=== PATIENT | female | born 1995 | race Caucasian/White ===

== ENCOUNTER → 2018-06-10 16:41 | Outpatient (CLI) | payer SELFPAY ==
[2018-06-13 14:12] LABS: HPV Reflexed? NOT INDICATED
== END ==
PROVIDERS: Visit Provider Obstetrics & Gynecology
DX: Z12.72 Encounter for screening for malignant neoplasm of vagina (principal)
CPT/HCPCS: 88175; G0145

== ENCOUNTER 2019-04-28 16:01 | Emergency (ER) | payer BC, SELFPAY ==
[2019-04-28 16:03] VITALS: BP 121/83; PULSE 89; RESP 16; TEMP 36.9; O2SAT 100; BMI 21.9
[2019-04-28 17:46] LABS: Mucous, Urine 0 SEEN /hpf (<or=2+); Squamous Epithelial Cells - UA 0 SEEN /hpf (5-10)
[2019-04-28 17:48] LABS: Color, Urine Amber (Yellow); Glucose, Dipstick Normal (Normal); Ketone-Dipstick Negative (Negative); Leukocyte Esterase-Dipstick 500 /ul (Negative); Nitrite-Dipstick Positive (Negative); Occult Blood-Urine 250 /ul (Negative); Protein-Dipstick 100 mg/dl (Negative); Urine Clarity Sl. Cloudy (Clear); Urine Urobilinogen 4 mg/dl (Normal); Urine pH 6.5 (5.0 - 8.0)
[2019-04-28 18:03] LABS: Urine Bilirubin Dipstick 3 mg/dL (Negative)
[2019-04-28 18:04] LABS: White Blood Cells 25-50 SEEN /hpf (0-5)
[2019-04-28 18:05] LABS: Bacteria 1+ /hpf (None Seen); Red Blood Cells-Urine 10-25 SEEN /hpf (0-5)
--- NOTE | 2019-04-28 18:22 | ED.DCSUM_ITS ---
- ER Visit Summary Date of Service: 04/28/19 Chief Complaint: [UTI symptoms] History of Present Illness: The patient is a 23 F [presents to the emergency department with 2-day history of pain and burning with urination. Patient states that she is currently on her menstrual period. She does have some pain in her back today mostly to the right side. She denies any fevers. She is had no vomiting. She complains of frequency and urgency as well as dysuria. Patient has had urinary tract infections in the past.] Physical Examination: [HEENT-PERRLA, EOMI. Cranial nerves II through XII grossly intact. TMs clear. Mucous membranes moist. No adenopathy. Cardiovascular-regular rate and rhythm without murmur or ectopy Lungs-clear to auscultation, chest wall stable without crepitus or subcu emphysema Abdomen-normoactive bowel sounds, soft, nontender, no rebound or rigidity, no peritoneal signs. Extremities-intact ?4, normal range of motion, normal pulses, atraumatic] Test Results: [Urinalysis obtained showed 500 leukocyte esterase as well as positive for nitrites and 25-50 WBCs as well as 10.5 RBCs.] Emergency Department Course and Treatment: [She was started on Bactrim and Azo.] Treatment Plan: [Be treated with Bactrim and Pyridium. 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 She is advised to return if worsening pain, fever, vomiting, or condition should worsen anyway.] Impression: [Urinary tract infection] This note was generated with [employer] dictation software. It may contain incorrect words, spelling, and punctuation that were not noted in review of the chart prior to signing ED Disposition - Plan for ED Patient: Referrals: Care Physician,No Primary [Primary Care Provider] -
--- NOTE | 2019-04-28 18:24 | ED.DEP ---
ED Disposition - Plan for ED Patient: Instructions: Bladder Infection, Female (Adult) Prescriptions: Smz/Tmp Ds [Bactrim Ds] 1 tab PO BID #10 tab Prescription Printed Phenazopyridine HCl [Pyridium] 200 mg PO BID PRN PRN #10 tab PRN Reason: Pain Prescription Printed Referrals: Care Physician,No Primary [Primary Care Provider] - Cyndee Bolanos MD [STAFF PHYSICIAN] - 3-5 Days
[2019-04-28 18:44] VITALS: BP 111/75; PULSE 87; RESP 18; O2SAT 97
[2019-04-28] MEDS: Phenazopyridine 95 MG Tablet 190 MG PO (18:44)
[2019-04-28] MEDS: Smz/Tmp Ds Tablet 1 TABLET PO (18:44)
== END 2019-04-28 18:46 | disposition home or self-care (01) ==
LOC: ED 17:48
PROVIDERS: Emergency Medicine; Emergency Provider Emergency Medicine
DX: N39.0 Urinary tract infection, site not specified (principal); Z87.440 Personal history of urinary (tract) infections
CPT/HCPCS: 81001; 87086; 87088; 87186; 99282

== ENCOUNTER → 2019-06-17 16:20 | Outpatient (CLI) | payer BC, SELFPAY ==
[2019-06-22 16:34] LABS: HPV Reflexed? NOT INDICATED
== END ==
PROVIDERS: Referring Provider Obstetrics & Gynecology; Visit Provider Obstetrics & Gynecology
DX: Z12.4 Encounter for screening for malignant neoplasm of cervix (principal)
CPT/HCPCS: 88175; G0145

== ENCOUNTER 2020-08-31 14:35 | Emergency (ER) | payer SELFPAY ==
[2020-08-31 14:37] VITALS: BP 139/90; PULSE 122; PULSE 99; RESP 16; RESP 20; TEMP 37.3; O2SAT 98; BMI 22.5
--- NOTE | 2020-08-31 14:56 | ED.VIS.GEN ---
History of Present Illness Chief Complaint: Mental Health Informant: Patient Narrative: Patient is a 25-year-old female who presents to the emergency department for suicidal ideation. She states that she has had a lot of past trauma that has been building up lately. She has tried to hurt herself before in the past with cutting her arms as well as hitting herself in the stomach. She did do this today. She was recently started on antidepressant medication last week but she is not sure which one. She states that she does drink a few times per week. Last time she drank was few days ago. She denies any drug use. She has never sought help for this before in the past. She feels like her parents do not care about her. She denies any other symptoms including any headache, vision changes. No chest pain or shortness of breath. No abdominal pain. He does have a superficial wounds to left wrist. Past Medical History - Allergies and Home Meds Allergies/Adverse Reactions: Allergies No Known Allergies Allergy (Verified 08/31/20 14:36) Primary Care Physician: Care Physician,No Primary [Primary Care Provider] - Prior records reviewed: Yes Past Medical History: - - Depression Surgical History: no surgical history Smoking Status: Never smoker Review of Systems All systems negative except as indicated General: Denies: Chills, Fever, Sweats Eyes: Denies: Visual changes - bilaterally, Diplopia ENT: Denies: Rhinorrhea, Sore throat Cardiovascular: Denies: Chest pain, Palpitations Respiratory: Denies: Dyspnea, Cough, Dyspnea on exertion Gastrointestinal: Denies: Abdominal pain, Nausea, Vomiting, Diarrhea Genitourinary: Denies: Dysuria, Hematuria, Frequency Musculoskeletal: Denies: Back pain, Extremity Pain Skin: Reports: Wounds. Denies: Rash Neurological: Denies: Headache, Weakness, Numbness Psych: Reports: Depression, Suicidal thoughts, Suicidal ideations Physical Exam Vital Signs/Narrative: Vital Signs Temp Pulse Resp BP Pulse Ox 08/31/20 14:37 99.1 F 122 H 20 H 139/90 H 98 Inital Vital Signs reviewed: Yes General: Well nourished, Well developed, No Acute Distress Head: Normocephalic, Atraumatic Eyes: Perrl, EOMI ENT: Moist mucous membranes, No rhinorrhea Neck: Supple, Nontender Cardiovascular: Regular rate, Regular rhythm, No murmurs Respiratory: No distress, CTA bilaterally, Chest nontender Abdomen: Soft, Nontender, Nondistended, Normal bowel sounds Back: Nontender, Normal Inspection Extremities: Nontender, No edema Skin: Normal color, No rash, - - 7 horizontally oriented linear superficial lacerations extending 3 to 4 mm each over left wrist Neurological: Alert, Oriented x3, Cranial nerves II-XII grossly intact, Normal Strength, Normal Sensation Psychological: Tearful, - - Patient calm and cooperative. Diagnostic/Tx/Re-eval - Medical Decision Making Patient presents to the ED for suicidal thoughts. She did cut her wrist today. She is never required acute psychiatric hospital visit before in the past for this. Denies any other symptoms at this time. Upon arrival to the emergency department she is in no acute distress. Will check basic lab work for medical clearance and will have social work evaluate. Patient's lab work did not reveal a significant acute abnormality. Her potassium was mildly low so this was replaced orally. Patient medically clear for psychiatric evaluation. Currently awaiting an available bed. Patient signed out due to end of shift. She otherwise has been stable throughout ED stay. ED Disposition - Plan for ED Patient: Disposition: Psychiatric Hospital or Unit Diagnosis: Suicidal ideation, Self-harming behavior Referrals: Care Physician,No Primary [Primary Care Provider] -
[2020-08-31 15:08] LABS: Absolute Lymphocyte Count 0.89 X10^3/uL (0.83-4.51); Absolute Neutrophil Count 2.9 X10^3/uL (2.0-7.7); Basophil# 0.02 X10^3/uL; Basophil% 0.5 % (0-1); Eosinophil# 0.04 X10^3/uL; Hematocrit 42.1 % (37-47); Hemoglobin 14.2 g/dL (12.0-15.0); Lymphocyte # 0.89 X10^3/ul (4.0); Lymphocyte % 21.5 % (19-41); Mean Corp Hgb Conc 33.7 g/dL (32-36); Mean Corpuscular Hgb 30.9 pg (27.0-32.0); Mean Corpuscular Volume 91.7 fL (81-99); Mean Platelet Vol. 10.2 fl (6.2-12.0); Monocyte# 0.25 X10^3/uL; NRBC Flagged by Analyzer 0 % (0-5); Neutrophil # 2.93 X10^3/uL (2.7-7.7); Neutrophil % 70.8 % (47-70); Platelet Count 312 K/mm3 (150-450); RBC Distribution Width CV 12.2 % (11.6-14.6); RBC Distribution Width SD 40.7 fl (35.1-43.9); Red Blood Count 4.59 M/mm3 (4.2-5.4); White Blood Count 4.1 K/mm3 (4.4-11.0)
[2020-08-31 15:22] LABS: Anion Gap 5 (5-15); BUN 12 mg/dL (7-18); BUN/Creat Ratio 13.5 RATIO (10-20); Chloride 106 mmol/L (98-107); Creatinine, Serum 0.89 mg/dL (0.55-1.02); EST Glomerular Filtration Rate 83 mL/min (>60); Est Glom Filt Rate - Afr Amer 100 mL/min (>60); Estimated Creatinine Clearance 91.25 ml/min; Glucose 99 mg/dL (74-106); Potassium 3.2 mmol/L (3.5-5.1); Sodium Level 139 mmol/L (136-145)
[2020-08-31 15:37] LABS: Amphetamine Urine VISTA NEGATIVE (<1000 ng/mL); Barbiturate Urine VISTA NEGATIVE (< 200 ng/mL); Benzodiazepine Urine VISTA NEGATIVE (< 200 ng/mL); Cocaine Urine VISTA NEGATIVE (< 300 ng/mL); Ecstacy Urine VISTA NEGATIVE (< 500 ng/mL); Methadone Urine VISTA NEGATIVE (< 300 ng/mL); PCP Urine VISTA NEGATIVE (< 25 ng/mL); THC Urine VISTA NEGATIVE (< 50 ng/mL); Vista UDS pH Range 6
[2020-08-31 16:09] LABS: Alcohol, Blood (Medical)-Serum < 3.0 mg/dL
[2020-08-31 16:20] LABS: Internal QC Validated? YES +Cl - CLEAR BKGD; Pregnancy, Serum, hCG Quali. NEGATIVE Negative
--- NOTE | 2020-08-31 16:31 | ED.RN ---
CHART FAXED TO [facility]
--- NOTE | 2020-08-31 18:22 | ED.RN ---
pt medicated with her home control and fluoxetine per verbal order from dr castro
--- NOTE | 2020-08-31 18:57 | NURSING ---
FRANCISCO FROM [facility] CALLED SAYING [facility] NEEDED US TO TREAT THE LOW POTASSIUM AND GET BETTER VITALS. I WILL INFORM THE NURSE
[2020-08-31 19:33] VITALS: BP 117/87; PULSE 78; RESP 14; O2SAT 98
[2020-08-31 20:21] VITALS: RESP 16
[2020-08-31 21:20] VITALS: RESP 16
[2020-08-31 22:21] VITALS: RESP 14
[2020-08-31 23:09] VITALS: RESP 14
--- NOTE | 2020-08-31 23:50 | NURSING ---
ACCEPTED TO [facility] BY [facility]ALINO [facility] [phone] REPORT
[2020-09-01 00:06] VITALS: BP 116/89; PULSE 68; RESP 14; TEMP 36.6; O2SAT 98
== END 2020-09-01 00:55 ==
PROVIDERS: Emergency Provider Emergency Medicine
DX: F32.9 Major depressive disorder, single episode, unspecified (principal); R45.851 Suicidal ideations; E87.6 Hypokalemia; S61.512A Laceration without foreign body of left wrist, initial encounter; X78.9XXA Intentional self-harm by unspecified sharp object, initial encounter; Y93.9 Activity, unspecified; Y92.9 Unspecified place or not applicable; Y99.9 Unspecified external cause status; Z79.899 Other long term (current) drug therapy
CPT/HCPCS: 80048; 80307; 82077; 84703; 85025; 99285

== ENCOUNTER → 2021-07-12 16:22 | Outpatient (CLI) | payer OTHER, SELFPAY ==
[2021-07-12 17:13] LABS: Absolute Lymphocyte Count 1.16 X10^3/uL (0.83-4.51); Absolute Neutrophil Count 1.9 X10^3/uL (2.0-7.7); Basophil# 0.03 X10^3/uL; Basophil% 0.8 % (0-1); Eosinophil# 0.27 X10^3/uL; Eosinophils% 7.4 % (0-5); Hematocrit 38.7 % (37-47); Hemoglobin 13.2 g/dL (12.0-15.0); Lymphocyte # 1.16 X10^3/ul (0.83-4.51); Lymphocyte % 31.8 % (19-41); Mean Corp Hgb Conc 34.1 g/dL (32-36); Mean Corpuscular Hgb 30.3 pg (27.0-32.0); Mean Corpuscular Volume 88.8 fL (81-99); Mean Platelet Vol. 10.5 fl (6.2-12.0); Monocyte% 8.2 % (0-10); NRBC Flagged by Analyzer 0 % (0-5); Neutrophil # 1.88 X10^3/uL (2.7-7.7); Neutrophil % 51.5 % (47-70); Platelet Count 310 K/mm3 (150-450); RBC Distribution Width CV 12.7 % (11.6-14.6); RBC Distribution Width SD 41.2 fl (35.1-43.9); Red Blood Count 4.36 M/mm3 (4.2-5.4); White Blood Count 3.7 K/mm3 (4.4-11.0)
[2021-07-12 17:44] LABS: ALB/GLOB Ratio 0.9 RATIO (0.9-2.4); AST(SGOT) 20 U/L (15-37); Alanine Aminotransfer ALT/SGPT 25 U/L (13-56); Albumin, Serum 3.2 g/dL (3.2-5.0); Alkaline Phosphatase 61 U/L (45-117); Anion Gap 8 (5-15); BUN 11 mg/dL (7-18); BUN/Creat Ratio 14.2 RATIO (10-20); Calcium,Total 8.3 mg/dL (8.5-10.1); Chloride 108 mmol/L (98-107); Creatinine, Serum 0.77 mg/dL (0.55-1.02); EST Glomerular Filtration Rate 96 mL/min (>60); Est Glom Filt Rate - Afr Amer 117 mL/min (>60); Globulin 3.7 g/dL (2.2-4.2); Glucose 91 mg/dL (74-106); Potassium 4.1 mmol/L (3.5-5.1); Protein, Total 6.9 g/dL (6.4-8.2); Sodium Level 142 mmol/L (136-145); T4 Free Direct 1.23 ng/dL (0.76-1.46); Thyroid Stim Hormone (TSH) 2.97 uIU/mL (0.358-3.74)
== END ==
LOC: BIMLAB 16:23
PROVIDERS: PCP Internal Medicine; Visit Provider Internal Medicine
DX: K92.1 Melena (principal); R10.9 Unspecified abdominal pain; R19.7 Diarrhea, unspecified
CPT/HCPCS: 36415; 80053; 84439; 84443; 85025

== ENCOUNTER → 2021-07-27 09:22 | Outpatient (CLI) | payer OTHER, SELFPAY ==
[2021-07-27 11:33] LABS: Erythrocyte Sedimentation Rate 12 mm/hr (0-30)
[2021-07-27 11:38] LABS: CRP 7.74 mg/L (0.0-3.0)
[2021-07-28 13:07] LABS: Anti-Centromere B Ab <0.2 AI (0.0-0.9); Anti-Chromatin <0.2 AI (0.0-0.9); Anti-Jo <0.2 AI (0.0-0.9); Anti-Scleroderma-70 AB <0.2 AI (0.0-0.9); RNP Ab <0.2 AI (0.0-0.9); SJOGREN'S Anti-SS-A test < 0.2 AI (0.0-0.9); SJOGREN'S Anti-SS-B test < 0.2 AI (0.0-0.9); Smith Ab <0.2 AI (0.0-0.9)
[2021-07-28 16:08] LABS: Cytoplasmic Ab (C-ANCA) <1:20 titer (Neg:<1:20); Endomysial Antibody IgA Positive (Negative); Immunoglobulin A 141 mg/dL (87-352)
[2021-07-28 20:40] LABS: Anti-dsDNA Ab <1 IU/mL (0-9)
[2021-07-28 20:41] LABS: Perinuclear Ab (P-ANCA) <1:20 titer (Neg:<1:20); t-Transglutaminase IgA >100 U/mL (0-3)
== END ==
LOC: LAB 09:23
PROVIDERS: PCP Internal Medicine; Referring Provider Nurse Practitioner Adult Health; Visit Provider Nurse Practitioner Adult Health
DX: R19.7 Diarrhea, unspecified (principal); K92.1 Melena; R10.9 Unspecified abdominal pain
CPT/HCPCS: 36415; 82784; 83516; 85652; 86140; 86225; 86235; 86255; 86256

== ENCOUNTER 2021-08-29 13:43 | Day surgery (SDC) | payer OTHER, SELFPAY ==
[2021-08-03 11:43] LABS: Calprotectin, Stool 234 ug/g (0-120)
[2021-08-29] VITALS (7 sets, daily range): BP systolic 95–116; BP diastolic 37–84; PULSE 62–80; RESP 16; TEMP 36.4–36.7; O2SAT 100; BMI 19.2
--- NOTE | 2021-08-29 | COLBX_PTH ---
PATIENT: LUPE AGUIRRE LOC: EN U#:[id number] AGE/SX: 26/F ROOM: RE08/29/[address]: Dr. Jatinder Richards DO : 1995 BED: DIS: 08/29/2021 SPEC #: [id number] RECD: 08/29/21 15:55 STATUS: ANGELIQUE ESPINOZA #: [id number] ORACIO: 08/29/21 00:[address]: Jatinder Richards DEPT: SURGICAL PATHOLOGY RECD BY: Malcolm Weiss ENTERED: 08/30/21 09:35 SP TYPE: COLON BX OTHR DR: Dr. Werner Rivera MD Tissues: A - Duodenum, NOS B - Small intestine biopsy C - COLON BIOPSY Procedures: Surgery Specimen Level IV HEADER OPERATION: Colonoscopy, EGD ([facility]) PRE-OP DIAGNOSIS: Iron deficiency anemia, GI bleed, GI hemorrhage, splenomegaly TISSUE SUBMITTED: A ? Duodenum biopsy, B ? Small bowel aphthous ulcer biopsy, C ? Random colon biopsy MICROSCOPIC DIAGNOSIS A. Duodenum, biopsy: Consistent with celiac disease. See microscopic description and comment. B. Small bowel aphthous ulcer, biopsy: Fragments of small intestinal mucosa with prominent lymphoid aggregates and granuloma formation. See comment. C. Colon, random biopsy: Focal mild chronic active colitis. See microscopic description and comment. COMMENT A. The findings are consistent with celiac disease. B. Significant active inflammation is not seen. C. The findings are suggestive of inflammatory bowel disease (Crohn?s disease). Correlation with clinical, endoscopic findings and appropriate follow up are necessary. Case has been reviewed in consultation with Dr. Pratt who concurs with the above diagnosis. IDC:AM MICROSCOPIC DESCRIPTION Slides are reviewed. A. The specimen shows fragments of duodenal mucosa with flattening of villi, increased number of intraepithelial lymphocytes and moderate chronic inflammatory cells, infiltrates in the lamina propria consisting of lymphocytes and plasma cells. C. The specimen shows fragments of colonic mucosa with focal mild cryptitis and numerous granuloma formation and lymphoid aggregates. Significant glandular distortion and crypt abscesses are not seen. GROSS DESCRIPTION A - Received in fixative is one container labeled with the patient's name and designated duodenum biopsy. The specimen consists of multiple irregular fragments of light ihcks soft tissue that in aggregate measure 1.5 x 0.4 x 0.1 cm. The specimen is totally submitted in one cassette. B - Received in fixative is one container labeled with the patient's name and designated Small bowel aphthous ulcer. The specimen consists of two irregular fragments of light hicks soft tissue that in aggregate measure 0.5 x 0.4 x 0.1 cm. The specimen is totally submitted in one cassette. C - Received in fixative is one container labeled with the patient's name and designated random colon biopsy. The specimen consists of multiple irregular fragments of light hicks soft tissue that in aggregate measure 1.8 x 0.5 x 0.1 cm. The specimen is totally submitted in one cassette. / SJ:rg 08/30/2021 TC:2 CPT: 60618 x3
[2021-08-29 14:10] LABS: Internal QC Validated? YES +Cl - CLEAR BKGD; Pregnancy, Urine Negative Negative
[2021-08-29] MEDS: Lactated Ringers 1,000 ML 15 ML IV (14:18)
--- NOTE | 2021-08-29 14:53 | PCM.HP.BLA ---
History and Physical Date of Admission: 08/29/21 26 F who presents to the office today for Referred for evaluation of abdominal discomfort, liquid stool with occasional blood. No predictors or triggers noted. Onset age 20. Family history of Crohn?s Disease. Additional history of anxiety and depression. Bloodwork from 07/12/21 noted WBC (L3.7), EOS (H 7.4), Absolute neutrophils (L1.9), Chloride (H108), Calcium (L8.3). Reports a lot of diarrhea, some days she will have a normal BM in the morning with liquid stool later up to five times a day a majority of the week. Reports occasional blood in her stool. One episode several years ago in which stools were majority of blood and resolved spontaneously. At times diarrhea is urgent, abdominal pain/cramping, decreased appetite with 20lb weight loss in the last 2 months. Has attempted pepto-bismol which changed stool to black but did not change stool. Has reduced the amount of sugar in her diet. ROS Const Constitutional: No anorexia, fatigue, fever(s), weight change or sleep problems Eyes Eyes: No change in vision ENT ENT: No abnormal hearing, difficulty swallowing, mouth lesions, tongue swelling or throat swelling Resp Respiratory: No cough or shortness of breath Cardio Cardiology: No chest pain at rest, chest pain with exertion, shortness of breath or dyspnea on exertion Gastro GI: No difficulty swallowing Genitourinary-Female: No difficulty urinating or burning urination Musc Musculoskeletal: No joint pain, joint swelling, muscle weakness or decreased muscle mass Skin Skin: No hair loss in leg, yellowing of the eye, itchy eyes, rash, skin ulcer or skin swelling Neuro Neurology: No abnormal hearing, abnormal movements, confusion, unsteady gait/balance or memory loss Psych Psychiatric: No anxiety, No confusion and No memory loss Endo Endocrine: No fatigue or weight change Aller/Imm Allergy/Immunologic: No itchy eyes, throat swelling or tongue swelling Guillermo/Lymp Hematologic/Lymphatic: No easy bleeding, easy bruising or enlarged lymph nodes Exam Const General: cooperative and comfortable Nutritional Appearance: average body habitus and well nourished HENMT Head: normal to inspection Ears: hearing grossly normal bilaterally Nose: external nose normal Face and sinus: normal facial exam Mouth: oral mucosae normal Throat: posterior oropharynx normal Eyes General: appearance normal, both eyes and all related structures Neck Neck: normal visual inspection Chest Chest palpation & inspection: normal inspection of the chest and normal palpation of entire chest wall Resp Effort & Inspection: normal respiratory effort Auscultation: Bilateral: Clear to Auscultation Cardio Palpation: normal PMI Rate: regular rate Rhythm: regular rhythm GI Inspection: normal to inspection Auscultation: normal bowel sounds Percussion: normal to percussion Palpation: no hepatosplenomegaly Skin General: no rashes or lesions noted Neuro General: patient alert Extrem General: normal to inspection Psych Affect: normal affect Quality Reporting Tobacco Screening ([facility]) Smoking Status: Never smoker Assessment and Plan Assessment and Plan (1) Diarrhea: Status: Acute Orders: Orders: CRP Today Erythrocyte Sed Rate Today Miscellaneous Lab Procedure Today Plan - Dr. Tobias Friend, DO: Differential diagnosis for her diarrhea does include Crohn's disease graded ulcerative colitis. Also different diagnosis could be celiac disease, IBS with diarrhea and less likely infectious. We will get stool studies along with biochemical work-up including ESR, CRP, VERONICA, ANCA, LDH. (2) Blood in stool: Status: Acute Orders: Orders: CRP Today Erythrocyte Sed Rate Today Miscellaneous Lab Procedure Today Plan - Dr. Tobias Friend, DO: Your diagnosis for blood in stool does include proctitis, ulcerative colitis, hemorrhoidal disease. She will get a colonoscopy lower GI tract with biopsies. She was explained alternatives, risk, benefits including outstanding bleeding, infection, sepsis, perforation, need for emergent surgery . She will have an ASA 1. I have re-examined the patient. There are no clinical changes since date of exam.
--- NOTE | 2021-08-29 15:13 | OP.EGD_ITS ---
Patient Name: Wendy Tran Procedure Date: 08/29/2021 2:55 PM Date of : 1995 Age: 26 Procedure: Upper GI endoscopy Indications: Epigastric abdominal pain, Failure to respond to medical treatment Providers: Jatinder Richards DO Referring MD: Werner Rivera MD Medicines: See the Anesthesia note for documentation of the administered medications Patient Profile: This is a 26 year old female. Refer to note in patient chart for documentation of history and physical. Patient has symptoms. Complications: No immediate complications. Procedure: Pre-Anesthesia Assessment: - Prior to the procedure, a History and Physical was performed, and patient medications and allergies were reviewed. The risks and benefits of the procedure and the sedation options and risks were discussed with the patient. All questions were answered and informed consent was obtained. Patient identification and proposed procedure were verified by the physician in the pre-procedure area. Mental Status Examination: alert and oriented. Airway Examination: normal oropharyngeal airway and neck mobility. Respiratory Examination: clear to auscultation. CV Examination: normal. Prophylactic Antibiotics: The patient does not require prophylactic antibiotics. Prior Anticoagulants: The patient has taken no previous anticoagulant or antiplatelet agents. After reviewing the risks and benefits, the patient was deemed in satisfactory condition to undergo the procedure. The anesthesia plan was to use moderate sedation / analgesia (conscious sedation). Immediately prior to administration of medications, the patient was re-assessed for adequacy to receive sedatives. The heart rate, respiratory rate, oxygen saturations, blood pressure, adequacy of pulmonary ventilation, and response to care were monitored throughout the procedure. The physical status of the patient was re-assessed after the procedure. After obtaining informed consent, the endoscope was passed under direct vision. Throughout the procedure, the patient's blood pressure, pulse, and oxygen saturations were monitored continuously. The Endoscope was introduced through the mouth, and advanced to the second part of duodenum. The upper GI endoscopy was accomplished without difficulty. The patient tolerated the procedure well. Moderate Sedation: Moderate (conscious) sedation was administered by the endoscopy nurse and supervised by the endoscopist. The following parameters were monitored: oxygen saturation, heart rate, blood pressure, and response to care. Total physician intraservice time was 15 minutes. Scope In: Scope Out: Findings: The examined esophagus was normal. The entire examined stomach was normal. Diffuse moderate inflammation characterized by congestion (edema), erythema and friability was found in the duodenal bulb, in the first portion of the duodenum, in the second portion of the duodenum and in the third portion of the duodenum. Biopsies for histology were taken with a cold forceps for evaluation of celiac disease. Verification of patient identification for the specimen was done. Estimated blood loss was minimal. Impression: - Normal esophagus. - Normal stomach. - Duodenitis. Biopsied. Recommendation: - Discharge patient to home. - Resume previous diet. - Continue present medications. - Await pathology results. - Return to my office. Procedure Code(s): --- Professional --- 70346, Esophagogastroduodenoscopy, flexible, transoral; with biopsy, single or multiple 08995, 59, Moderate sedation services provided by the same physician or other qualified health foster care therapist performing the diagnostic or therapeutic service that the sedation supports, requiring the presence of an independent trained observer to assist in the monitoring of the patient's level of consciousness and physiological status; initial 15 minutes of intraservice time, patient age 5 years or older CPT copyright 2017 [employer]. All rights reserved. The codes documented in this report are preliminary and upon information coder review may be revised to meet current compliance requirements. Jatinder Richards DO 08/29/2021 3:13:07 PM This report has been signed electronically. Number of Addenda: 1 Note Initiated On: 08/29/2021 2:55 PM Addendum Number: 1 Addendum Date: 04/12/2022 6:24:59 AM MAC was used instead of moderate sedation for the patient. Jatinder Richards DO 04/12/2022 6:25:03 AM This report has been signed electronically.
--- NOTE | 2021-08-29 15:14 | OP.CCLET_ITS ---
04/12/2022 Werner Rivera MD [address] [place] [address] [place] [address] Re : Upper GI endoscopy procedure for Wendy Tran Dear Dr. Rivera This procedure was performed on Sunday, August 29, 2021. My impressions and recommendations are as follows: Impressions : - Normal esophagus. - Normal stomach. - Duodenitis. Biopsied. Recommendations : - Discharge patient to home. - Resume previous diet. - Continue present medications. - Await pathology results. - Return to my office. My findings are described in the full procedure note, which is enclosed. If I can be of further assistance, please feel free to contact me at . Sincerely, Jatinder Richards, 08/29/2021 3:13:07 PM This report has been signed electronically.
--- NOTE | 2021-08-29 15:50 | OP.CCLET_ITS ---
04/12/2022 Werner Rivera MD [address] [place] [address] [place] [address] Re : Colonoscopy procedure for Wendy Tran Dear Dr. Rivera This procedure was performed on Sunday, August 29, 2021. My impressions and recommendations are as follows: Impressions : - Congested mucosa in the recto-sigmoid colon, in the sigmoid colon and in the descending colon. Biopsied. - Congested mucosa in the distal ileum. Biopsied. Recommendations : - Discharge patient to home. - Resume previous diet. - Continue present medications. - Await pathology results. - Return to GI clinic. - Repeat colonoscopy at appointment to be scheduled for surveillance based on pathology results. My findings are described in the full procedure note, which is enclosed. If I can be of further assistance, please feel free to contact me at . Sincerely, Jatinder Friend, 08/29/2021 3:49:34 PM This report has been signed electronically.
--- NOTE | 2021-08-29 15:50 | OP.COLON_ITS ---
Patient Name: Wendy Tran Procedure Date: 08/29/2021 3:14 PM Date of : 1995 Age: 26 Procedure: Colonoscopy Indications: Clinically significant diarrhea of unexplained origin Providers: Jatinder Richards DO Referring MD: Werner Rivera MD Medicines: See the Anesthesia note for documentation of the administered medications Patient Profile: This is a 26 year old female. Refer to note in patient chart for documentation of history and physical. Patient has symptoms. Last Colonoscopy: none. The patient's first colonoscopy is today. Complications: No immediate complications. Procedure: Pre-Anesthesia Assessment: - Prior to the procedure, a History and Physical was performed, and patient medications and allergies were reviewed. The risks and benefits of the procedure and the sedation options and risks were discussed with the patient. All questions were answered and informed consent was obtained. Patient identification and proposed procedure were verified by the physician in the pre-procedure area. Mental Status Examination: alert and oriented. Airway Examination: normal oropharyngeal airway and neck mobility. Respiratory Examination: clear to auscultation. CV Examination: normal. Prophylactic Antibiotics: The patient does not require prophylactic antibiotics. Prior Anticoagulants: The patient has taken no previous anticoagulant or antiplatelet agents. After reviewing the risks and benefits, the patient was deemed in satisfactory condition to undergo the procedure. The anesthesia plan was to use moderate sedation / analgesia (conscious sedation). Immediately prior to administration of medications, the patient was re-assessed for adequacy to receive sedatives. The heart rate, respiratory rate, oxygen saturations, blood pressure, adequacy of pulmonary ventilation, and response to care were monitored throughout the procedure. The physical status of the patient was re-assessed after the procedure. After I obtained informed consent, the scope was passed under direct vision. Throughout the procedure, the patient's blood pressure, pulse, and oxygen saturations were monitored continuously. The pediatric colonoscope was introduced through the anus and advanced to the terminal ileum. The colonoscopy was performed without difficulty. The patient tolerated the procedure well. The quality of the bowel preparation was good. Moderate Sedation: Moderate (conscious) sedation was administered by the endoscopy nurse and supervised by the endoscopist. The following parameters were monitored: oxygen saturation, heart rate, blood pressure, and response to care. Total physician intraservice time was 15 minutes. Scope In: 3:18:31 PM Scope Withdrawal Time 0 hours 9 minutes 10 seconds Scope Out: 3:34:42 PM Total Procedure Duration Time 0 hours 16 minutes 11 seconds Findings: The perianal and digital rectal examinations were normal. An area of moderately congested mucosa was found in the recto-sigmoid colon, in the sigmoid colon and in the descending colon. Biopsies for histology were taken with a cold forceps from the ascending colon, right colon, left colon, transverse colon, right transverse colon, left transverse colon, descending colon, sigmoid colon, rectum and rectosigmoid colon for evaluation of microscopic colitis. Estimated blood loss was minimal. A patchy area of the distal ileum was congested. Biopsies were taken with a cold forceps for histology. Verification of patient identification for the specimen was done. Estimated blood loss was minimal. Impression: - Congested mucosa in the recto-sigmoid colon, in the sigmoid colon and in the descending colon. Biopsied. - Congested mucosa in the distal ileum. Biopsied. Recommendation: - Discharge patient to home. - Resume previous diet. - Continue present medications. - Await pathology results. - Return to GI clinic. - Repeat colonoscopy at appointment to be scheduled for surveillance based on pathology results. Procedure Code(s): --- Professional --- 67605, Colonoscopy, flexible; with biopsy, single or multiple 28440, 59, Moderate sedation services provided by the same physician or other qualified health home child care provider performing the diagnostic or therapeutic service that the sedation supports, requiring the presence of an independent trained observer to assist in the monitoring of the patient's level of consciousness and physiological status; initial 15 minutes of intraservice time, patient age 5 years or older CPT copyright 2017 [employer]. All rights reserved. The codes documented in this report are preliminary and upon ultrasonic welding machine operator review may be revised to meet current compliance requirements. Jatinder Richards DO 08/29/2021 3:49:34 PM This report has been signed electronically. Number of Addenda: 1 Note Initiated On: 08/29/2021 3:14 PM Addendum Number: 1 Addendum Date: 04/12/2022 6:25:11 AM MAC was used instead of moderate sedation for the patient. Jatinder Richards DO 04/12/2022 6:25:16 AM This report has been signed electronically.
== END 2021-08-29 23:59 | disposition home or self-care (01) ==
LOC: EN 13:45 → AC 13:46
PROVIDERS: Anesthesiology; Nurse Practitioner Adult Health; PCP Internal Medicine; Referring Provider Internal Medicine; Visit Provider Internal Medicine Gastroenterology
PROC: 0DJD8ZZ Inspection of Lower Intestinal Tract, Via Natural or Artificial Opening Endoscopic (ICD-10-PCS; CPT 45378; principal; 2021-08-29 14:40)
DX: K52.9 Noninfective gastroenteritis and colitis, unspecified (principal); K29.80 Duodenitis without bleeding; F32.A Depression, unspecified; F41.9 Anxiety disorder, unspecified; G25.81 Restless legs syndrome; Z79.899 Other long term (current) drug therapy
CPT/HCPCS: 45380; 43239; 81025; 83630; 83993; 87426; 87493; 87506; 88305; C9803; J7120

== ENCOUNTER 2021-09-20 16:28 | Outpatient (CLI) | payer OTHER, SELFPAY ==
[2021-09-21 08:30] LABS: Hepatitis B Surface Antigen Non-Reactive (Nonreactive); Rubella IgG Reactive (Nonreactive)
[2021-09-22 22:07] LABS: Hepatitis B Core Ab Total Negative (Negative); QNTFERON TB Mitogen Value > 10.00 IU/mL (.); QNTFERON TB Nil Value 0.06 IU/mL (.); QNTFERON TB1+ Ag Value 0.26 IU/mL (.); QNTFERON TB2+ Ag Value 0.22 IU/mL (.)
[2021-09-23 10:16] LABS: Hepatitis A AB, Total Negative (Negative); Mumps Antibody,IgG < 9.0 AU/mL (Immune >10.9); QNTIFERON TB Positive Criteria Negative (Negative); Rubeola IgG Ab 72.8 AU/mL (Immune >16.4); V-Zoster IgG (Immunity) 603 index (Immune >165)
== END 2021-09-20 23:59 | disposition home or self-care (01) ==
LOC: LAB 16:31
PROVIDERS: PCP Internal Medicine; Visit Provider Nurse Practitioner Adult Health
DX: K50.90 Crohn's disease, unspecified, without complications (principal)
CPT/HCPCS: 36415; 86480; 86704; 86708; 86735; 86762; 86765; 86787; 87340

== ENCOUNTER 2021-11-23 10:24 | Outpatient (CLI) | payer OTHER, SELFPAY ==
[2021-11-23 10:46] LABS: Absolute Lymphocyte Count 0.64 X10^3/uL (0.83-4.51); Absolute Neutrophil Count 2.5 X10^3/uL (2.0-7.7); Basophil# 0.03 X10^3/uL; Basophil% 0.8 % (0-1); Eosinophils% 2.7 % (0-5); Hematocrit 37.9 % (37-47); Hemoglobin 12.5 g/dL (12.0-15.0); Lymphocyte # 0.64 X10^3/ul (0.83-4.51); Lymphocyte % 17.5 % (19-41); Mean Corpuscular Hgb 30.3 pg (27.0-32.0); Mean Corpuscular Volume 91.8 fL (81-99); Mean Platelet Vol. 10.6 fl (6.2-12.0); Monocyte# 0.34 X10^3/uL; Monocyte% 9.3 % (0-10); NRBC Flagged by Analyzer 0 % (0-5); Neutrophil # 2.53 X10^3/uL (2.7-7.7); Neutrophil % 69.4 % (47-70); Platelet Count 206 K/mm3 (150-450); RBC Distribution Width CV 12.8 % (11.6-14.6); RBC Distribution Width SD 42.8 fl (35.1-43.9); Red Blood Count 4.13 M/mm3 (4.2-5.4); White Blood Count 3.7 K/mm3 (4.4-11.0)
[2021-11-23 10:51] LABS: Erythrocyte Sedimentation Rate 3 mm/hr (0-30)
[2021-11-23 11:16] LABS: ALB/GLOB Ratio 1.1 RATIO (0.9-2.4); AST(SGOT) 14 U/L (15-37); Alanine Aminotransfer ALT/SGPT 18 U/L (13-56); Albumin, Serum 3.7 g/dL (3.2-5.0); Alkaline Phosphatase 53 U/L (45-117); Anion Gap 2 (5-15); BUN 13 mg/dL (7-18); BUN/Creat Ratio 15.4 RATIO (10-20); CRP 4.63 mg/L (0.0-3.0); Calcium,Total 8.6 mg/dL (8.5-10.1); Chloride 108 mmol/L (98-107); Creatinine, Serum 0.84 mg/dL (0.55-1.02); EST Glomerular Filtration Rate 87 mL/min (>60); Est Glom Filt Rate - Afr Amer 106 mL/min (>60); Globulin 3.3 g/dL (2.2-4.2); Glucose 75 mg/dL (74-106); Potassium 3.8 mmol/L (3.5-5.1); Sodium Level 141 mmol/L (136-145)
[2021-11-23 11:17] LABS: Hepatitis B Surface Antibody Non-Reactive
== END 2021-11-23 23:59 | disposition home or self-care (01) ==
PROVIDERS: PCP Internal Medicine; Referring Provider Nurse Practitioner Adult Health; Visit Provider Nurse Practitioner Adult Health
DX: K50.90 Crohn's disease, unspecified, without complications (principal)
CPT/HCPCS: 36415; 80053; 85025; 85652; 86140; 86706

== ENCOUNTER → 2021-11-28 | Outpatient (CLI) | payer OTHER, SELFPAY ==
--- NOTE | 2021-11-28 08:10 | CT_ITS ---
STUDY: CT ABDOMEN AND PELVIS WITH CONTRAST REASON FOR EXAM: Female, 26 years old. Diffuse abdominal pain, history of Crohn''s RADIATION DOSAGE (If Supplied By Facility): CTDIvol = ( 10.83 ) mGy, DLP = ( 801.52 ) mGycm TECHNIQUE: Transaxial images were obtained from the dome of the diaphragm to the symphysis pubis without oral contrast. Oral and amp; IV BREEZA NEUTRAL and amp; 100mL Isovue-300 was administered. Sagittal and coronal images were reconstructed. Individualized dose optimization techniques were used for this CT. COMPARISON: None. FINDINGS: The visualized lung bases are unremarkable. The visualized portions of the heart are within normal limits. Normal liver. Normal gallbladder and extrahepatic biliary system. Normal spleen. Normal pancreas. Normal bilateral adrenal glands. Normal right kidney. Normal left kidney. Stomach is distended and fluid-filled. However, there is no suspicious submucosal thickening or perigastric inflammation to suspect gastritis. There is also no suspicious submucosal thickening in small or large bowel loops. There are nondistended fluid-filled small bowel loops throughout the lower half of the abdomen along with fluid-filled ascending colon suggesting diffuse enteritis. There is retained stool in the distal transverse and descending colon. Appendix seen on coronal recon images 38 through 48 Normal abdominal aorta. Normal inferior vena cava. Normal retroperitoneum. Normal urinary bladder. Normal visualized uterus. No suspicious adnexal mass, there is a small amount of free fluid in the dependent pelvis which is likely physiologic. Normal abdominal wall. Normal osseous structures. CT/Abdomen/Pelvis WITH Contrast IMPRESSION: Multiple nondistended fluid-filled small bowel loops in the lower half of the abdomen consistent with ileus. There is no suspicious submucosal thickening or pericolonic inflammatory stranding. No demonstrated fistula. There is also fluid filled ascending colon without submucosal thickening. Findings are consistent with diffuse enteritis. Stomach is distended and fluid-filled but there is no suspicious submucosal thickening in the body of the stomach or gastric antrum. No gastric inflammation to suspect gastritis. Small amount of free fluid in the dependent pelvis is likely physiologic No suspicious solid organ abnormality Normal appendix visualized Electronically Signed: Romie Umanzor MD at 10:57 EDT ,
== END | disposition home or self-care (01) ==
LOC: CT 07:47
PROVIDERS: PCP Internal Medicine; Referring Provider Nurse Practitioner Adult Health; Visit Provider Nurse Practitioner Adult Health
DX: K50.90 Crohn's disease, unspecified, without complications (principal); R10.9 Unspecified abdominal pain
CPT/HCPCS: 74177; Q9967

== ENCOUNTER → 2021-12-14 | Outpatient (CLI) | payer OTHER, SELFPAY ==
--- NOTE | 2021-12-14 10:41 | NM_ITS ---
INDICATION: distended stomach on CT EXAMINATION: NUCLEAR MEDICINE GASTRIC EMPTYING - NM Gastric Emptying Study (solid, liquid or both) TECHNIQUE: Radiopharmaceutical (solid portion of the exam Tc99m Sulfur Colloid mixed with oat meal. Oral administration. Imaging: Radiopharmaceutical (liquid portion of the exam Tc99m Sulfur Colloid mixed with orange juice. Oral administration. Imaging: COMPARISON: None. FINDINGS: Gastric emptying time with solids: 20 minutes, within normal limits. Gastric emptying time with liquids: 20 minutes, within normal limits. NM/Gastric Emptying Study IMPRESSION: Normal gastric emptying time with liquids and solids. Electronically Signed: Alfredo Ford MD at 23:45 EDT ,
== END | disposition home or self-care (01) ==
PROVIDERS: PCP Internal Medicine; Referring Provider Nurse Practitioner Adult Health; Visit Provider Nurse Practitioner Adult Health
DX: K31.89 Other diseases of stomach and duodenum (principal); R93.5 Abnormal findings on diagnostic imaging of other abdominal regions, including retroperitoneum
CPT/HCPCS: 78264; A9541

== ENCOUNTER → 2022-03-19 | Outpatient (CLI) | payer OTHER, SELFPAY ==
[2022-03-19 10:21] LABS: Erythrocyte Sedimentation Rate 6 mm/hr (0-30)
[2022-03-19 10:22] LABS: Absolute Lymphocyte Count 0.87 X10^3/uL (0.83-4.51); Absolute Neutrophil Count 1.6 X10^3/uL (2.0-7.7); Basophil# 0.03 X10^3/uL; Eosinophil# 0.16 X10^3/uL; Eosinophils% 5.5 % (0-5); Hematocrit 42.1 % (37-47); Hemoglobin 13.8 g/dL (12.0-15.0); Lymphocyte # 0.87 X10^3/ul (0.83-4.51); Lymphocyte % 29.7 % (19-41); Mean Corp Hgb Conc 32.8 g/dL (32-36); Mean Corpuscular Hgb 30.7 pg (27.0-32.0); Mean Corpuscular Volume 93.8 fL (81-99); Monocyte# 0.23 X10^3/uL; Monocyte% 7.8 % (0-10); NRBC Flagged by Analyzer 0 % (0-5); Neutrophil # 1.64 X10^3/uL (2.7-7.7); Platelet Count 248 K/mm3 (150-450); RBC Distribution Width CV 12.6 % (11.6-14.6); RBC Distribution Width SD 43.3 fl (35.1-43.9); Red Blood Count 4.49 M/mm3 (4.2-5.4); White Blood Count 2.9 K/mm3 (4.4-11.0)
[2022-03-19 10:57] LABS: ALB/GLOB Ratio 1.1 RATIO (0.9-2.4); AST(SGOT) 13 U/L (15-37); Alanine Aminotransfer ALT/SGPT 18 U/L (13-56); Albumin, Serum 3.8 g/dL (3.2-5.0); Alkaline Phosphatase 42 U/L (45-117); Anion Gap 3 (5-15); BUN 9 mg/dL (7-18); BUN/Creat Ratio 10.4 RATIO (10-20); CRP < 2.90 mg/L (0.0-3.0); Calcium,Total 8.9 mg/dL (8.5-10.1); Chloride 107 mmol/L (98-107); Creatinine, Serum 0.87 mg/dL (0.55-1.02); EST Glomerular Filtration Rate 84 mL/min (>60); Est Glom Filt Rate - Afr Amer 102 mL/min (>60); Globulin 3.5 g/dL (2.2-4.2); Glucose 99 mg/dL (74-106); Potassium 3.6 mmol/L (3.5-5.1); Protein, Total 7.3 g/dL (6.4-8.2); Sodium Level 140 mmol/L (136-145)
[2022-03-20 13:08] LABS: Endomysial Antibody IgA Positive (Negative)
[2022-03-21 13:48] LABS: Immunoglobulin A 143 mg/dL (87-352); t-Transglutaminase IgA 6 U/mL (0-3)
== END | disposition home or self-care (01) ==
PROVIDERS: PCP Internal Medicine; Referring Provider Nurse Practitioner Adult Health; Visit Provider Nurse Practitioner Adult Health
DX: K90.0 Celiac disease (principal); K50.90 Crohn's disease, unspecified, without complications
CPT/HCPCS: 80053; 82784; 83516; 85025; 85652; 86140; 86255

== ENCOUNTER → 2022-03-23 | Outpatient (CLI) | payer OTHER, SELFPAY ==
[2022-03-27 07:54] LABS: Calprotectin, Stool 139 ug/g (0-120)
== END | disposition home or self-care (01) ==
LOC: LABSPEC 10:27
PROVIDERS: PCP Internal Medicine; Referring Provider Nurse Practitioner Adult Health; Visit Provider Nurse Practitioner Adult Health
DX: K90.0 Celiac disease (principal); K50.90 Crohn's disease, unspecified, without complications
CPT/HCPCS: 83630; 83993

== ENCOUNTER → 2022-04-27 | Outpatient (CLI) | payer OTHER, SELFPAY ==
[2022-04-27 11:48] LABS: Mucous, Urine 0 SEEN /hpf (<or=2+); Red Blood Cells-Urine 0 SEEN /hpf (0-5); White Blood Cells 0 SEEN /hpf (0-5)
[2022-04-27 12:23] LABS: Absolute Lymphocyte Count 0.89 X10^3/uL (0.83-4.51); Absolute Neutrophil Count 1.6 X10^3/uL (2.0-7.7); Basophil# 0.02 X10^3/uL; Basophil% 0.7 % (0-1); Eosinophils% 3.5 % (0-5); Hematocrit 39.6 % (37-47); Hemoglobin 12.9 g/dL (12.0-15.0); Lymphocyte # 0.89 X10^3/ul (0.83-4.51); Lymphocyte % 31.2 % (19-41); Mean Corp Hgb Conc 32.6 g/dL (32-36); Mean Corpuscular Hgb 31.6 pg (27.0-32.0); Mean Corpuscular Volume 97.1 fL (81-99); Mean Platelet Vol. 10.9 fl (6.2-12.0); Monocyte# 0.28 X10^3/uL; Monocyte% 9.8 % (0-10); NRBC Flagged by Analyzer 0 % (0-5); Neutrophil # 1.55 X10^3/uL (2.7-7.7); Neutrophil % 54.4 % (47-70); Platelet Count 192 K/mm3 (150-450); RBC Distribution Width CV 12.8 % (11.6-14.6); RBC Distribution Width SD 45.8 fl (35.1-43.9); Red Blood Count 4.08 M/mm3 (4.2-5.4); White Blood Count 2.9 K/mm3 (4.4-11.0)
[2022-04-27 15:01] LABS: Color, Urine Straw (Yellow); Glucose, Dipstick Normal (Normal); Ketone-Dipstick Negative (Negative); Leukocyte Esterase-Dipstick Negative /ul (Negative); Nitrite-Dipstick Negative (Negative); Occult Blood-Urine Negative /ul (Negative); Protein-Dipstick Negative (Negative); Specific Gravity, Urine 1.015 (1.002-1.030); Urine Bilirubin Dipstick Negative (Negative); Urine Clarity Clear (Clear); Urine Urobilinogen Normal (Normal)
[2022-04-27 15:16] LABS: Bacteria 1+ /hpf (None Seen); Squamous Epithelial Cells - UA 0-5 SEEN /hpf (5-10)
[2022-04-27 15:19] LABS: Internal QC Validated? YES +Cl - CLEAR BKGD; Pregnancy, Urine Negative Negative
== END | disposition home or self-care (01) ==
LOC: BIMLAB 11:22
PROVIDERS: PCP Internal Medicine; Referring Provider Internal Medicine; Visit Provider Internal Medicine
DX: D72.819 Decreased white blood cell count, unspecified (principal); R10.2 Pelvic and perineal pain; R82.90 Unspecified abnormal findings in urine
CPT/HCPCS: 36415; 81001; 81025; 85025; 87086; 87088

== ENCOUNTER → 2022-09-27 | Outpatient (CLI) | payer BC, SELFPAY ==
[2022-09-27 10:28] LABS: Erythrocyte Sedimentation Rate 5 mm/hr (0-30)
[2022-09-27 10:30] LABS: Absolute Neutrophil Count 4.3 X10^3/uL (2.0-7.7); Basophil# 0.02 X10^3/uL; Basophil% 0.4 % (0-1); Eosinophil# 0.09 X10^3/uL; Eosinophils% 1.7 % (0-5); Hematocrit 36.3 % (37-47); Hemoglobin 11.9 g/dL (12.0-15.0); Lymphocyte % 11.3 % (19-41); Mean Corp Hgb Conc 32.8 g/dL (32-36); Mean Corpuscular Hgb 31.8 pg (27.0-32.0); Mean Corpuscular Volume 97.1 fL (81-99); Mean Platelet Vol. 10.8 fl (6.2-12.0); Monocyte# 0.28 X10^3/uL; Monocyte% 5.3 % (0-10); NRBC Flagged by Analyzer 0 % (0-5); Neutrophil # 4.25 X10^3/uL (2.7-7.7); Neutrophil % 80.4 % (47-70); POSITIVE DIFFERENTIAL YES; Platelet Count 210 K/mm3 (150-450); RBC Distribution Width CV 13.2 % (11.6-14.6); RBC Distribution Width SD 46.8 fl (35.1-43.9); Red Blood Count 3.74 M/mm3 (4.2-5.4); White Blood Count 5.3 K/mm3 (4.4-11.0)
[2022-09-27 10:37] LABS: Differential Indicated SCAN CRITERIA MET
[2022-09-27 10:53] LABS: Vitamin B12 415 pg/mL (211-911)
[2022-09-27 11:25] LABS: ALB/GLOB Ratio 0.8 RATIO (0.9-2.4); AST(SGOT) 17 U/L (15-37); Alanine Aminotransfer ALT/SGPT 17 U/L (13-56); Albumin, Serum 3.1 g/dL (3.2-5.0); Alkaline Phosphatase 41 U/L (45-117); Anion Gap 7 (5-15); BUN 15 mg/dL (7-18); BUN/Creat Ratio 25.1 RATIO (10-20); CRP < 2.90 mg/L (0.0-3.0); Chloride 106 mmol/L (98-107); EST Glomerular Filtration Rate 129 mL/min (>60); Est Glom Filt Rate - Afr Amer 156 mL/min (>60); Globulin 3.7 g/dL (2.2-4.2); Glucose 78 mg/dL (74-106); Potassium 3.7 mmol/L (3.5-5.1); Protein, Total 6.8 g/dL (6.4-8.2); Sodium Level 138 mmol/L (136-145)
[2022-09-30 08:08] LABS: Endomysial Antibody IgA Positive (Negative); HEPATITIS B SURFACE AG Negative (Negative); Hep C Antibodies Non Reactive (Non Reactive); Hepatitis A IgM Antibody Negative (Negative); Hepatitis B Core AB IgM Negative (Negative); Immunoglobulin A 101 mg/dL (87-352); QNTFERON TB Mitogen Value > 10.00 IU/mL (.); QNTFERON TB Nil Value 0.02 IU/mL (.); QNTFERON TB1+ Ag Value 0.07 IU/mL (.); QNTFERON TB2+ Ag Value 0.05 IU/mL (.)
[2022-09-30 09:12] LABS: QNTIFERON TB Positive Criteria Negative (Negative); t-Transglutaminase IgA 5 U/mL (0-3)
== END | disposition home or self-care (01) ==
LOC: LAB 09:19
PROVIDERS: PCP Internal Medicine; Referring Provider Nurse Practitioner Adult Health; Visit Provider Nurse Practitioner Adult Health
DX: K50.90 Crohn's disease, unspecified, without complications (principal); K90.0 Celiac disease
CPT/HCPCS: 36415; 80053; 80074; 82607; 82746; 82784; 83516; 85025; 85652; 86140; 86255; 86480

== ENCOUNTER → 2022-10-01 | Outpatient (CLI) | payer BC, SELFPAY ==
[2022-10-06 10:59] LABS: Calprotectin, Stool 18 ug/g (0-120)
== END | disposition home or self-care (01) ==
LOC: LAB 08:26
PROVIDERS: PCP Internal Medicine; Referring Provider Nurse Practitioner Adult Health; Visit Provider Nurse Practitioner Adult Health
DX: K50.90 Crohn's disease, unspecified, without complications (principal); K90.0 Celiac disease; K58.9 Irritable bowel syndrome, unspecified
CPT/HCPCS: 83630; 83993

== ENCOUNTER → 2023-08-29 | Outpatient (CLI) | payer BC, SELFPAY ==
--- OUTSIDE RECORDS SUMMARY | 2023-08-29 09:21 | XMS RPT_ITS | CCD ---
Author Name Unknown Address [id number] [place] [id number] Organization [facility] Care Team Providers Care Nurseryman Assistant Name Role Phone JADEN SANTO MD Primary Care Physician SHANNON PUGA DO Attending JADEN Crabtree MD Primary Care Unavailab SHANNON Green DO Admitting BAYRON Ling Attending JADEN Reese MD Primary Care Unavailab le PROVIDER, UNKNOWN Attending JADEN Dewitt MD Primary Care Unavailab le PROVIDER, UNKNOWN Attending JADEN Dewitt MD Primary Care Unavailab BAYRON Rocha Attending JADEN Reese MD Primary Care Unavailab le Results Test Name Value Interpretation Reference Range Facil ity Encounters Encounter Date Encounter Type Care Provider Facility Start: 02-19-2023 End: 02-22-2023 Evaluation and management of inpatient SHANNON PUGA DO Facility:[facility] Start: 10-08-2022 End: 10-09-2022 ambulatory UNKNOWN PROVIDER Facility:[facility] Start: 10-08-2022 End: 10-08-2022 Patient encounter procedure MINESH GARAY APRN-IRENE [facility] Start: 08-15-2022 End: 08-16-2022 ambulatory UNKNOWN PROVIDER Facility:[facility] Start: 08-15-2022 End: 08-15-2022 Patient encounter procedure MINESH GARAY APRN-IRENE [facility] Start: 07-09-2022 End: 07-10-2022 ambulatory BAYRON PLUNKETT [employer] TEACHER-DIRECTOR PRESALES Facility:[facility] Start: 07-09-2022 End: 07-09-2022 Patient encounter procedure BAYRON PLUKNETT PUBLIC HEALTH TEACHER-DIRECTOR PRESALES [facility] Start: 07-07-2022 End: 07-08-2022 ambulatory BAYRON PLUNKETT [employer] HE[employer] TEACHER-DIRECTOR PRESALES Facility:[facility] Start: 07-07-2022 End: 07-07-2022 Patient encounter procedure BAYRON PLUNKETT [employer] HE[employer] TEACHER-DIRECTOR PRESALES [facility] Payers Date Payer Category Payer Unknown [id number] 2022 Unknown [id number] 1995 Unknown [id number] 1995 Unknown [id number] 1995 Unknown [id number] [id number] [id number] 1995 Unknown [id number] 2.16.8 [id number] 1995 Unknown [id number] 2.16.8 [id number] Social History Date Type Detail Facility Tobacco smoking status No Smoking Status Entered [facility] Sex Assigned At Female [facility] Evaluation + Plan note Radiology Note Date & Type Note Facility Evaluation + Plan note Future Appointments Appointment Date:07/09/2022 10:30:00 AM Scheduled Provider: Location:[facility] Appointment Type:US OB W/Transvaginal Future Scheduled TestsUS OB W/Transvaginal 07/09/22 [facility] Hospital course Narrative Note Date & Type Note Facility Hospital course Narrative No data available for this section [facility] Hospital Discharge instructions Note Date & Type Note Facility Hospital Discharge instructions No data available for this section [facility] Progress note Note Date & Type Note Facility Progress note No data available for this section [facility] Summary Purpose Family History No Family History Records Found Advance Directives No Advanced Directives Records Found Additional Source Comments Care Team (unrecognized sect ion and content) Care Team Personnel Name: JADEN SANTO MD Member Role: Primary Care Physician Address: Address: [address] [place] [address] Care Team Personnel Name: JADEN SANTO MD Member Role: Primary Care Physician Address: Address: [address] [place] [address] Care Team Personnel Name: JADEN SANTO MD Member Role: Primary Care Physician Address: Address: [address] [place] [address] Care Team Related Persons Name: MARY IBRAHIM Care Team Personnel Name: JADEN SANTO MD Member Role: Primary Care Physician Address: Address: [address] [place] [address] Care Team Related Persons Name: MARY IBRAHIM INFORMATION SOURCE (unrecogn ized section and content) FOR RECORDS PERTAINING TO PATIENTS WHO ARE OR HAVE BEEN ENROLLED IN A CHEMICAL DEPENDENCY/SUBSTANCEABUSE PROGRAM, SOME INFORMATION MAY BE OMITTED. This clinical summary was aggregated from multiple sources. Caution should be exercised in using it in the provision of clinical care. This summary normalizes information from multiple sources, and as a consequence, information in this document may materially change the coding, format and clinical context of patient data. In addition, data may be omitted in some cases. CLINICAL DECISIONS SHOULD BE BASED ON THE PRIMARY CLINICAL RECORDS. [facility]. provides no warranty or guarantee of the accuracy or completeness of information in this document.
[2023-08-29 09:39] LABS: Erythrocyte Sedimentation Rate < 1 mm/hr (0-30)
[2023-08-29 09:41] LABS: Absolute Lymphocyte Count 1.25 X10^3/uL (0.83-4.51); Absolute Neutrophil Count 3.2 X10^3/uL (2.0-7.7); Basophil# 0.03 X10^3/uL; Basophil% 0.6 % (0-1); Eosinophil# 0.16 X10^3/uL; Eosinophils% 3.2 % (0-5); Hematocrit 40.4 % (37-47); Hemoglobin 13.1 g/dL (12.0-15.0); Lymphocyte # 1.25 X10^3/ul (0.83-4.51); Lymphocyte % 25.3 % (19-41); Mean Corp Hgb Conc 32.4 g/dL (32-36); Mean Corpuscular Hgb 30.3 pg (27.0-32.0); Mean Corpuscular Volume 93.5 fL (81-99); Mean Platelet Vol. 10.9 fl (6.2-12.0); Monocyte% 6.1 % (0-10); NRBC Flagged by Analyzer 0 % (0-5); Neutrophil # 3.19 X10^3/uL (2.7-7.7); Neutrophil % 64.4 % (47-70); Platelet Count 255 K/mm3 (150-450); RBC Distribution Width CV 12.8 % (11.6-14.6); RBC Distribution Width SD 43.8 fl (35.1-43.9); Red Blood Count 4.32 M/mm3 (4.2-5.4)
[2023-08-29 09:53] LABS: ALB/GLOB Ratio 1.1 RATIO (0.9-2.4); AST(SGOT) 10 U/L (15-37); Alanine Aminotransfer ALT/SGPT 16 U/L (13-56); Albumin, Serum 3.7 g/dL (3.2-5.0); Alkaline Phosphatase 68 U/L (45-117); Anion Gap 0 (5-15); BUN 16 mg/dL (7-18); BUN/Creat Ratio 20.6 RATIO (10-20); CRP < 2.90 mg/L (0.0-3.0); Calcium,Total 8.7 mg/dL (8.5-10.1); Chloride 110 mmol/L (98-107); Creatinine, Serum 0.78 mg/dL (0.55-1.02); EST Glomerular Filtration Rate 95 mL/min (>60); Est Glom Filt Rate - Afr Amer 115 mL/min (>60); Globulin 3.3 g/dL (2.2-4.2); Glucose 110 mg/dL (74-106); LDH 133 U/L (84-246); Potassium 3.6 mmol/L (3.5-5.1); Sodium Level 139 mmol/L (136-145)
[2023-09-02 15:07] LABS: Endomysial Antibody IgA Positive (Negative); Immunoglobulin A 120 mg/dL (87-352); QNTFERON TB Mitogen Value > 10.00 IU/mL (.); QNTFERON TB Nil Value 0 IU/mL (.); QNTFERON TB1+ Ag Value 0.13 IU/mL (.); QNTFERON TB2+ Ag Value 0.04 IU/mL (.); QNTIFERON TB Positive Criteria Negative (Negative); t-Transglutaminase IgA 2 U/mL (0-3)
== END | disposition home or self-care (01) ==
PROVIDERS: PCP Internal Medicine; Referring Provider Internal Medicine Gastroenterology; Visit Provider Internal Medicine Gastroenterology
DX: K50.90 Crohn's disease, unspecified, without complications (principal); K90.0 Celiac disease
CPT/HCPCS: 36415; 80053; 82784; 83516; 83615; 85025; 85652; 86140; 86255; 86480

== ENCOUNTER → 2023-09-06 | Outpatient (CLI) | payer BC, SELFPAY ==
[2023-09-11 00:07] LABS: Calprotectin, Stool 103 ug/g (0-120)
== END | disposition home or self-care (01) ==
LOC: LABSPEC 12:17
PROVIDERS: PCP Internal Medicine; Referring Provider Internal Medicine Gastroenterology; Visit Provider Internal Medicine Gastroenterology
DX: K90.0 Celiac disease (principal); K50.90 Crohn's disease, unspecified, without complications
CPT/HCPCS: 83630; 83993

== ENCOUNTER → 2024-01-17 | Outpatient (CLI) | payer BC, SELFPAY ==
[2024-01-17 10:37] LABS: Absolute Lymphocyte Count 1.15 X10^3/uL (0.83-4.51); Absolute Neutrophil Count 2.2 X10^3/uL (2.0-7.7); Basophil# 0.04 X10^3/uL; Eosinophil# 0.13 X10^3/uL; Eosinophils% 3.4 % (0-5); Hematocrit 39.5 % (37-47); Hemoglobin 13.1 g/dL (12.0-15.0); Lymphocyte # 1.15 X10^3/ul (0.83-4.51); Lymphocyte % 29.8 % (19-41); Mean Corp Hgb Conc 33.2 g/dL (32-36); Mean Corpuscular Hgb 30.3 pg (27.0-32.0); Mean Corpuscular Volume 91.2 fL (81-99); Mean Platelet Vol. 10.5 fl (6.2-12.0); Monocyte# 0.36 X10^3/uL; Monocyte% 9.3 % (0-10); NRBC Flagged by Analyzer 0 % (0-5); Neutrophil # 2.17 X10^3/uL (2.7-7.7); Neutrophil % 56.2 % (47-70); Platelet Count 244 K/mm3 (150-450); RBC Distribution Width CV 12.5 % (11.6-14.6); RBC Distribution Width SD 41.8 fl (35.1-43.9); Red Blood Count 4.33 M/mm3 (4.2-5.4); White Blood Count 3.9 K/mm3 (4.4-11.0)
[2024-01-17 10:44] LABS: Erythrocyte Sedimentation Rate < 1 mm/hr (0-30)
[2024-01-17 11:59] LABS: ALB/GLOB Ratio 1.2 RATIO (0.9-2.4); AST(SGOT) 17 U/L (15-37); Alanine Aminotransfer ALT/SGPT 19 U/L (13-56); Albumin, Serum 3.9 g/dL (3.2-5.0); Alkaline Phosphatase 43 U/L (45-117); Anion Gap 10 (5-15); BUN 13 mg/dL (7-18); BUN/Creat Ratio 16.6 RATIO (10-20); CRP < 2.90 mg/L (0.0-3.0); Calcium,Total 8.8 mg/dL (8.5-10.1); Chloride 104 mmol/L (98-107); Creatinine, Serum 0.78 mg/dL (0.55-1.02); EST Glomerular Filtration Rate 93 mL/min (>60); Est Glom Filt Rate - Afr Amer 113 mL/min (>60); Globulin 3.2 g/dL (2.2-4.2); Glucose 103 mg/dL (74-106); Potassium 3.5 mmol/L (3.5-5.1); Protein, Total 7.1 g/dL (6.4-8.2); Sodium Level 139 mmol/L (136-145)
[2024-01-20 16:09] LABS: Endomysial Antibody IgA Positive (Negative); Immunoglobulin A 113 mg/dL (87-352); t-Transglutaminase IgA <2 U/mL (0-3)
== END | disposition home or self-care (01) ==
LOC: LAB 09:45
PROVIDERS: PCP Internal Medicine; Referring Provider Internal Medicine Gastroenterology; Visit Provider Internal Medicine Gastroenterology
DX: K90.0 Celiac disease (principal); K50.90 Crohn's disease, unspecified, without complications
CPT/HCPCS: 36415; 80053; 82784; 83516; 85025; 85652; 86140; 86255

== ENCOUNTER → 2025-06-03 | Outpatient (CLI) | payer BC, MEDICAID, SELFPAY ==
[2025-06-03 16:43] LABS: Hematocrit 38.8 % (37-47); Hemoglobin 13.2 g/dL (12.0-15.0); Immature Granulocytes Count 0.010 X10^3/uL (0.0-0.0); Mean Corp Hgb Conc 34.0 g/dL (32-36); Mean Corpuscular Volume 90.2 fL (81-99); Mean Platelet Vol. 10.8 fl (6.2-12.0); NRBC Flagged by Analyzer 0 % (0-5); Platelet Count 209 K/mm3 (150-450); RBC Distribution Width CV 12.3 % (11.6-14.6); RBC Distribution Width SD 40.9 fl (35.1-43.9); Red Blood Count 4.30 M/mm3 (4.2-5.4); White Blood Count 5.0 K/mm3 (4.4-11.0)
[2025-06-03 18:22] LABS: AST(SGOT) 16 U/L (<=31); Alanine Aminotransfer ALT/SGPT 8 U/L (<=34); Albumin, Serum 4.6 g/dL (3.5-5.0); Alkaline Phosphatase 42 U/L (35-104); Anion Gap 9 (5-15); BUN 15 mg/dL (4-19); BUN/Creat Ratio 20.4 RATIO (10-20); Calcium,Total 9.2 mg/dL (7.6-11.0); Carbon Dioxide 25.7 mmol/L (21.0-32.0); Chloride 104 mmol/L (98-108); Globulin 2.4 g/dL (2.2-4.2); Glucose 101 mg/dL (70-99); Magnesium 2.2 mg/dL (1.5-2.2); Potassium 4.4 mmol/L (3.3-5.1); Vitamin B12 520 pg/mL (180-914)
[2025-06-07 14:09] LABS: Immunoglobulin A 114 mg/dL (87-352)
[2025-06-08 14:09] LABS: Vitamin D 1,25-Dihydroxy 35.4 pg/mL (24.8-81.5)
== END | disposition home or self-care (01) ==
LOC: LAB 15:48
PROVIDERS: PCP Internal Medicine; Referring Provider Internal Medicine Gastroenterology; Visit Provider Internal Medicine Gastroenterology
DX: K90.0 Celiac disease (principal)
CPT/HCPCS: 36415; 80053; 82607; 82652; 82784; 83516; 83735; 84100; 85025; 86255